=== PATIENT | male | born 1965 | race Caucasian/White ===

== ENCOUNTER 2022-09-28 09:16 | Outpatient (CLI) | payer BC, SELFPAY | END 2022-09-28 09:17 | disposition home or self-care (01) | PROVIDERS: Visit Provider Family Medicine | DX: Z00.00 Encounter for general adult medical examination without abnormal findings (principal); E66.01 Morbid (severe) obesity due to excess calories; I10 Essential (primary) hypertension; N40.0 Benign prostatic hyperplasia without lower urinary tract symptoms; N48.6 Induration penis plastica; Z12.5 Encounter for screening for malignant neoplasm of prostate | CPT/HCPCS: 80053; 80061; 82043; 82570; 84153; 84403; 87086; 87186 ==

== ENCOUNTER 2023-09-11 10:28 | Outpatient (CLI) | payer BC, SELFPAY | END 2023-09-11 10:29 | disposition home or self-care (01) | LOC: NFLDREF 09-13 07:52 | PROVIDERS: PCP Physician Assistant Medical; Referring Provider Family Medicine; Visit Provider Physician Assistant Medical | DX: Z00.00 Encounter for general adult medical examination without abnormal findings (principal); N52.9 Male erectile dysfunction, unspecified; I10 Essential (primary) hypertension; N40.0 Benign prostatic hyperplasia without lower urinary tract symptoms; N40.1 Benign prostatic hyperplasia with lower urinary tract symptoms; R35.0 Frequency of micturition | CPT/HCPCS: 80053; 80061; 84443; G0103 ==

== ENCOUNTER 2023-10-27 18:34 | Emergency (ER) | payer BC, SELFPAY ==
[2023-10-27 18:43] VITALS: BP 132/91; PULSE 77; RESP 14; TEMP 36.3; O2SAT 95; BMI 28.1
--- NOTE | 2023-10-27 19:09 | ED_ITS ---
HPI - Dizziness General Chief Complaint: Dizziness/Vertigo Stated Complaint: dizzy, nausea Time Seen by Provider: 10/27/23 18:39 History of Present Illness HPI Narrative: This 58-year-old male comes in reporting vertigo symptoms that started about 7 or 8 hours ago. These came on rather suddenly and symptoms are minimal or absent if he remains still. He states that he has a long standing history of some tinnitus symptoms over the past 10 years or so. He does not report any other change in his hearing except that he noticed when he remains still he sometimes can hear a wishing sound in his left ear that comes and goes at about the rate of his heartbeat. He has some nausea but did not have any vomiting. He does not report any neurologic deficits. Related Data Home Medications Medication Instructions Recorded Confirmed tadalafil 10 mg tablet mg PRN 10/27/23 Previous Rx's Medication Instructions Recorded lisinopril 20 1 tab PO DAILY #90 tabs 09/12/23 mg-hydrochlorothiazide 12.5 mg tablet tamsulosin 0.4 mg capsule 0.4 mg PO DAILY #90 caps 09/12/23 meclizine 25 mg tablet 25 mg PO QID #20 tabs 10/27/23 ondansetron HCl 4 mg tablet 4 mg PO Q6H #10 tabs 10/27/23 Allergies Allergy/AdvReac Type Severity Reaction Status Date / Time No Known Allergies Allergy Unknown Verified 10/27/23 18:43 Review of Systems Status of ROS: Reports: 10 or more systems reviewed and unremarkable except as noted in History and below Narrative: Constitutional: No fevers, no weight gain or loss. Eyes: No discharge. No vision changes. HENT: No congestion, no sore throat, no ear pain. Cardiovascular: No chest pain, no palpitations. Respiratory: No shortness of breath, no wheezes, no cough. Gastrointestinal: No abdominal pain, no vomiting, no diarrhea. Genitourinary: No dysuria, no hematuria. Musculoskeletal: Normal range of motion. Skin: No rashes, no pruritis. Neurological: No weakness, sensory change, speech change. Vertigo symptoms as described above. Endo/Heme/Allergies: No bruising or bleeding. No polydipsia. Pysch: no suicidality, no anxiety, no insomnia. All other systems reviewed and are negative. [facility] Medical History (Updated 10/27/23 @ 19:13 by Sergei Machado MD) History of compression fracture of spine ?Z87.81 - Personal history of (healed) traumatic fracture (ICD-10) Prostatitis, acute ?N41.0 - Acute prostatitis (ICD-10) Surgical History (Updated 09/11/23 @ 10:04 by Julio C Montes PA-C) History of colonoscopy ?Z98.890 - Other specified postprocedural states (ICD-10) History of vasectomy ?Z98.52 - Vasectomy status (ICD-10) History of orthopedic surgery ?Z98.890 - Other specified postprocedural states (ICD-10) Family History (Updated 09/22/22 @ 12:23 by Megan Ewing) Mother Coronary artery disease Father Diabetes Other Lung cancer Social History (Updated 09/11/23 @ 10:18 by Emma Sanchez ~ [facility]) Narrative: Does not use illicit drugs Has 2 children Nonsmoker Occasional alcohol consumption What is your current living situation?: I presently have a place to live Problems where you live: no known problems In the past 12 months, utilities in danger of being shut off: no In past 12 months, lack of transportation kept you from medical appts, meetings, work, or getting things needed for daily living: no In the past 12 mos, have been you worried that your food would run out before you had money to buy more?: never true In the past 12 mos, the food you bought just didn't last and you didn't have money to buy more?: never true How often does anyone, including family, friends and others, physically hurt you : never How often does anyone, including family, friends and others, insult or talk down to you: never How often does anyone, including family, friends and others, threaten you with harm: never How often does anyone, including family, friends and others, scream or curse at you: never Little interest or pleasure in doing things: not at all Feeling down, depressed, or hopeless: several days Exam Narrative: Exam Narrative: Constitutional: Well-developed, well-nourished, no acute distress. HEENT: Normocephalic, atraumatic. Tympanic membranes appear normal bilaterally. Neck: Normal range of motion. Nontender. Supple. Heart: Regular. No murmurs. Normal rate. Intact distal pulses. Lungs: Clear to auscultation. No chest discomfort. No wheezes, rhonchi, or rales. Abdomen: Normal bowel sounds. Nontender. No rebound tenderness. Genitalia: Deferred. Back: No midline tenderness. Normal range of motion. Extremities: Normal range of motion. No injury. Skin: Intact. No rash. Warm. No erythema or pallor. Neurologic: No altered sensation. No weakness. Alert and oriented. No facial asymmetry. Tongue is midline. [id number] is normal. No pronator drift. [employer] Safety Officer strength is equal bilaterally. Able to raise each leg from the bed. Psychiatric: No suicidality. No anxiety or depression. No insomnia. Nursing notes and vitals signs are reviewed. Const: Vital Signs, click to edit/add: Vital Signs - 24 hr 10/27/23 18:43 Temperature 97.4 F L Pulse Rate [Pulse Oximeter] 77 Respiratory Rate 14 Blood Pressure [Ri ght Upper Arm] 132/91 H Pulse Oximetry 95 Oxygen Delivery Me thod Room Air Course Vital Signs Vital signs: Initial Vital Signs Temperature 97.4 F L 10/27/23 18:43 Temperature Source Temporal Artery Scan 10/27/23 18:43 Pulse Rate 77 10/27/23 18:43 Respiratory Rate 14 10/27/23 18:43 Blood Pressure 132/91 H 10/27/23 18:43 Blood Pressure Mean 104 10/27/23 18:43 Blood Pressure Position Semi-Fowlers 10/27/23 18:43 Pulse Oximetry 95 10/27/23 18:43 Oxygen Delivery Method Room Air 10/27/23 18:43 Vital Signs Temperature 97.4 F L 10/27/23 18:43 Pulse Rate 77 10/27/23 18:43 Respiratory Rate 14 10/27/23 18:43 Blood Pressure 132/91 H 10/27/23 18:43 Pulse Oximetry 95 10/27/23 18:43 Oxygen Delivery Method Room Air 10/27/23 18:43 Temperature 97.4 F L 10/27/23 18:43 Pulse Rate 77 10/27/23 18:43 Respiratory Rate 14 10/27/23 18:43 Blood Pressure 132/91 H 10/27/23 18:43 Pulse Oximetry 95 10/27/23 18:43 Oxygen Delivery Method Room Air 10/27/23 18:43 MDM - Dizziness MDM Narrative Medical decision making narrative: This 58-year-old male comes in with vertigo symptoms that are worsened with movement but improved or completely absent when remaining still. He has pre- existing tinnitus but no hearing changes related to the vertigo. His neurologic exam is completely normal. His vertigo is not suspicious for being from a central process. The patient received oral doses of meclizine and Zofran and prescriptions for the same. He is okay to be discharged home. Discharge Plan Discharge Clinical Impression: Acute vestibular neuronitis Patient Disposition: Home, Self-Care Condition: Stable Additional Instructions: Take medication as needed and directed. Activity as tolerated. Follow up with MD return if worsening. Prescriptions: New ondansetron HCl 4 mg tablet 4 mg PO Q6H Qty: 10 0RF meclizine 25 mg tablet 25 mg PO QID Qty: 20 0RF No Action tadalafil 10 mg tablet PRN lisinopril-hydrochlorothiazide 20-12.5 mg tablet 1 tab PO DAILY Qty: 90 3RF tamsulosin 0.4 mg capsule 0.4 mg PO DAILY Qty: 90 3RF Follow Up/Referrals: Julio C Montes PA-C [Primary Care Provider] - Stand Alone Forms: [employer] Info Instructions
--- OUTSIDE RECORDS SUMMARY | 2023-10-27 19:16 | XMS_ITS | Data Portability ---
Author Name Unknown Address [address] [place] [address] Phone [phone] Organization [facility], [facility] Address [address] [place] [address] Care Team Providers Care Mandarin Tutor Name Role Phone JACOB MCLEOD Primary Care Provider Assessment Encounter Date Assessment Date Assessment LastModified by Organization Details LastModified Time 02/17/2020 02/17/2020 54 yoM with elevated PSA, lower urinary tract symptoms including nocturia Not available 02/18/2020 10:04:32 10/06/2022 10/06/2022 57 yoM with elevated PSA, lower urinary tract symptoms including nocturia, and Peyronie's disease Not available 10/06/2022 08:22:04 12/28/2022 12/28/2022 57 yoM with elevated PSA, lower urinary tract symptoms including nocturia, and Peyronie's disease rstromquist Not available 12/23/2022 15:30:14 06/29/2023 06/29/2023 57 yoM with elevated PSA, lower urinary tract symptoms including nocturia, and Peyronie's disease rstromquist Not available 06/27/2023 11:29:00 09/27/2023 09/27/2023 58 yoM with elevated PSA, lower urinary tract symptoms including nocturia, and Peyronie's disease rstromquist Not available 09/26/2023 16:12:02 Plan of Treatment Reminders Order Date Submit Date Provider Last Modified By Organization Details Last Modified Time Details Appointments None recorded . Lab prostate specific Ag, serum or plasma 2019 020 ATHENAFAX Jacob Mcleod MD, [address], [place], [address], 0 16:55:05 Referral None recorded . Procedures None recorded . Surgeries transure thral waterjet ablation of prostate , complete (SURG) 2023 024 [email or web address] Not available 4 13:38:16 Imaging None recorded . Medication Orders tadalafi l 20 mg tablet 2023 024 [id number], [address], [place], [address], 4 13:14:51 sildenaf il 100 mg tablet 2022 023 [id number], [facility], [place], [address], 4 13:14:43 pentoxif ylline ER 400 mg tablet,e xtended release 2022 023 [id number], [facility], [place], [address], 3 11:51:53 Patient TargetsNo targets recorded. Patient Instructions Encounter Date Encounter Id Patient Instructions Last Modified By Organization Details Last Modified Time 09/27/2023 [id number] Procedure Description: The Aquablation procedure is a minimally invasive surgical technique used to treat benign prostatic hyperplasia (BPH). During the procedure, a combination of imaging and robotics is utilized to deliver a high-velocity waterjet to precisely remove excess prostate tissue, thus relieving urinary symptoms associated with BPH. The procedure is performed under general or regional anesthesia. Benefits: Improved urinary symptoms: Aquablation has shown efficacy in improving urinary flow, reducing urinary frequency, urgency, and nocturia, and relieving other symptoms caused by BPH. Preserved sexual function: The Aquablation procedure aims to preserve sexual function, including erectile function and ejaculation. Risks and Complications: While Aquablation is generally considered safe, there are potential risks and complications associated with the procedure, including but not limited to: (1) Bleeding: In rare cases, excessive bleeding may occur during or after the procedure, requiring blood transfusion or further intervention. (2) Infection: There is a risk of infection at the surgical site, urinary tract, or elsewhere in the body, which may necessitate antibiotic treatment. (3) Urinary retention: Difficulty or inability to urinate immediately after the procedure may occur, necessitating the placement of a temporary urinary catheter. (4) Urinary incontinence: There is a small risk of temporary or, in rare cases, permanent urinary incontinence. (5) Sexual dysfunction: While efforts are made to preserve sexual function, there is a possibility of erectile dysfunction, retrograde ejaculation, or other changes in sexual function. (6) Transurethral resection of the prostate (TURP) conversion: In rare instances, if the Aquablation procedure is deemed unsuccessful or unsafe, conversion to TURP or other interventions may be necessary. Not available 09/27/2023 13:34:55 10/06/2022 [id number] He would like to proceed with pentoxifylline with manual traction therapy. What I would like you to do is 2-3 times per day spend a total of 2 minutes performing stretching exercises. First you will stretch your penis straight until is is uncomfortably tight. Hold this for 1 minute. The use your other hand to create a fulcrum and bend the penis the opposite way from the direction that it bends with erections. Again hold this for 1 minute. You should perform these stretching exercises in the flaccid state. Not available 10/06/2022 10:35:34 Reason for Referral None Reported. Results Created Date Observation Date Name Description Value Unit Range Abnormal Flag LastModifiedBy Organization Detail LastModifiedTime 10/07/1910/06/2022 EXODX PROST ATE(I NTELL ISCOR E) performingsi te Not Available [facility] [address], [place], [address], 10/11/2022 15:17:14 10/13/1910/06/2022 bladd er scan (PROC ) No observ ation record ed. Not Available 12/28/2022 12:07:30 10/10/19 24 09/27/2023 US, prost ate No observ ation record ed. [email or web address] Not Available 10/10/2023 14:58:04 Result Notes None recorded. Procedures Surgical History Date Name Laterality Status Provider Name and Address Organization Details Recorded Time 4 Cystoscopy- male completed Kade Chan MD [address], [place], [address], [facility] 09/27/2023 13:31:06 4 COMPLEX VISIT completed Kade Chan MD [address] [place] [address],[address], [place], [address], [facility] 09/27/2023 09:43:11 4 TRUS- Volume size only completed Kade Chan MD [address] [place] [address],[address], [place], [address], [facility] 09/27/2023 13:32:06 4 Sulfa post Cysto completed Nazia Stromquist null, [facility] 09/27/2023 12:49:00 4 Bladder Scan completed Nazia Stromquist null, [facility] 09/27/2023 12:48:52 4 COMPLEX VISIT completed Kade Chan MD [address] [place] [address],[address], [place], [address], [facility] 06/29/2023 21:30:03 4 Bladder Scan completed Krys Martín null, [facility] 06/29/2023 11:46:50 3 Bladder Scan completed Nazia Stromquist null, [facility] 12/28/2022 11:50:34 3 Bladder Scan completed Nazia Stromquist null, [facility] 10/06/2022 10:01:06 repair of penis completed Nazia Stromquist null, [facility] 10/06/2022 10:00:29 Imaging Results Imaging Date Name Status LastModified by Organiz ation Details LastModified Time 10/06/2022 bladder scan (PROC) completed Information not available 12/28/2022 12:07:30 09/27/2023 US, prostate completed Information not available 10/10/2023 14:58:04 Procedure Notes None recorded. Medical Equipment None Reported. Allergies No known drug allergies Medications Name Sig Start Date Stop Date Status Note LastModified by Organization Details LastModified Time amoxicillin 500 mg capsule TAKE ONE CAPSULE BY MOUTH THREE TIMES DAILY for 10 days* 12/28 completed Not Available Not Available Not Available lisinopril 20 mg-hydrochlo rothiazide 12.5 mg tablet TAKE 1 TABLET BY MOUTH ONE TIME DAILY* active Not Available Not Available No t Available sildenafil 100 mg tablet take 1 tablet by mouth once daily as needed* 09/26 completed Not Available Not Available Not Available pentoxifylli ne ER 400 mg tablet,exten ded release TAKE 1 TABLET BY MOUTH TWICE DAILY 12/28 completed Not Available Not Available Not Available tamsulosin 0.4 mg capsule TAKE 1 CAPSULE BY MOUTH ONE TIME DAILY* active Not Available Not Available No t Available lisinopril 10 mg tablet TAKE 1 TABLET BY MOUTH ONE TIME DAILY 10/06 completed Not Available Not Available Not Available lisinopril 10 mg-hydrochlo rothiazide 12.5 mg tablet TAKE 1 TABLET BY MOUTH ONE TIME DAILY 12/28 completed Not Available Not Available Not Available doxycycline hyclate 100 mg tablet 10/06 completed Not Available Not Available Not Available tadalafil 20 mg tablet TAKE 1 TABLET BY MOUTH ONE TIME DAILY* active Not Available Not Available No t Available Vitals Date Recorded Body height Body mass index (BMI) Body weight Provider Name and Address Organization Details Last Updated DateTime 10/06/2022 190.5 cm 28.7 kg/m2 366022.25 g Nazia Miranda [facility] 10/06/2022 09:49:57 Date Recorded Body height Body mass index (BMI) Body weight Provider Name and Address Organization Details Last Updated DateTime 12/28/2022 190.5 cm 28.7 kg/m2 090358.25 g Nazia Miranda [facility] 12/28/2022 11:44:28 Date Recorded Body height Body mass index (BMI) Body weight Provider Name and Address Organization Details Last Updated DateTime 06/29/2023 190.5 cm 28.1 kg/m2 041779.28 g Krys Resendiz [facility] 06/29/2023 11:47:29 Date Recorded Body height Body mass index (BMI) Body weight Provider Name and Address Organization Details Last Updated DateTime 02/17/2020 190.5 cm 28.7 kg/m2 182853.25 g Kade Chan MD [address] [place] [address] [address], [place], [address], [facility] 02/17/2020 16:22:36 Social History Question Answer Notes LastModified by Organizat ion Details LastModified Time Tobacco Smoking Status Current Some Day Smoker Nazia conrad [facility] 10/06/2022 09:59:17 What Is Your Level Of Alcohol Consumption? Occasional Information not available 10/06/2022 What Was The Date Of Your Most Recent Tobacco Screening? 06/29/2023 [email or web address] Information not available 06/29/2023 Do You Use Any Illicit Or Recreational Drugs? No Information not available 10/06/2022 Sex: Male Functional Status None recorded. Mental Status None recorded. Family History Relationship Description Onset Age of this Age Resolved Age Notes Mother Family history of ca rdiac disorder Father Family history of di abetes mellitus Medical History Condition Response Sexually Transmitted Infection N Diabetes N Other N Bleeding Disorder N High Blood Pressure Y Kidney Stones N Cancer N Lung Disease N Depression N High Cholesterol N Heart Disease N Immunizations Vaccine Type Date Status Provider Name and Address Organization Details Recorded Time COVID-19, mRNA, LNP-S, PF, 30 mcg/0.3 mL dose 07/13/2021 completed Nazia conrad [facility] 12/28/2022 11:44:33 COVID-19, mRNA, LNP-S, PF, 30 mcg/0.3 mL dose 09/29/2020 completed Nazia conrad [facility] 12/28/2022 11:44:34 COVID-19, mRNA, LNP-S, PF, 30 mcg/0.3 mL dose 10/20/2020 completed Nazia conrad [facility] 12/28/2022 11:44:34 Tdap 12/11/2018 completed Nazia conrad [facility] 12/28/2022 11:44:34 Novel [id number], all formulations 06/08/2009 completed Nazia conrad [facility] 12/28/2022 11:44:34 yellow fever live 08/10/2016 completed Nazia conrad [facility] 12/28/2022 11:44:34 Influenza, seasonal, injectable, preservative free 04/03/2014 completed Nazia Ruth [place], [facility] 12/28/2022 11:44:34 Hep A, adult 08/10/2016 completed Nazia conrad [facility] 12/28/2022 11:44:34 Past Encounters Encounter ID Performer Location Encounter Start Date Encounter Closed Date Diagnosis/Indication Diagnosis SNOMED-CT Code [id number] MD [facility] [address] [place] [address] 02/17/2020 15:58:43 02/18/2020 23:49:02 Prostate specific antigen above reference range 091588318 Lower urin nabor tract symptoms 885556817 Nocturia [id number] MD [facility] [address] [place] [address] 10/06/2022 09:42:18 10/11/2022 10:25:34 Prostate specific antigen above reference range 110248929 Lower urin nabor tract symptoms 734701382 Nocturia 884006571 Induration penis plastica 7366975 [id number] MD [facility] [address] [place] [id number] 12/28/2022 11:27:11 01/03/2023 10:01:19 Prostate specific antigen above reference range 397150295 Lower urin nabor tract symptoms 654370958 Nocturia 538374226 Induration penis plastica 0239104 Primary er ectile dysfunction 690100788 [id number] MD [facility] [address] [place] [id number] 06/29/2023 11:38:50 07/06/2023 09:45:30 Prostate specific antigen above reference range 956666469 Lower urin nabor tract symptoms 419070648 Nocturia 489151450 Induration penis plastica 7610915 Primary er ectile dysfunction [id number] MD [facility] [address] [place] [id number] 09/27/2023 12:02:47 09/28/2023 14:14:20 Prostate specific antigen above reference range 264825523 Lower urin nabor tract symptoms 756468653 Nocturia 281359017 Induration penis plastica 0584512 Primary er ectile dysfunction 023604643 Health Concerns Section Related Observation LastModified by Organization Detai ls LastModified Time None Recorded Concern Status LastModified by Organization Details LastModified Time None Recorded Advance Directives Directive None Recorded Payers Encounter Date Sequence Insurance Name Policy Number Policy Smith Covered Member ID Smith Member ID Guarantor Name 09/27/2023 1 [place] [id number] Donnell [id number] Donnell Lind 06/29/2023 1 [place] [id number] Donnell [id number] Donnell Lind 12/28/2022 1 [place] [id number] Donnell Lind [id number] Donnell Lind 10/06/2022 1 [place] [id number] Donnell [id number] Donnell Lind 02/17/2020 1 [place] [id number] Donnell Lind [id number] Donnell Lind Notes Date Note Type Note Provider Name and Address Organization Details Recorded Time 02/17/2020 text/html HPI Notes: Mr. Lind is a very pleasant 54 yoM who is referred to me by his PCP, Dr. Harjinder Mcleod, regarding elevated PSA. Patient has been undergoing routine health maintainance which included PSA screening. While his 2019 PSA measured 2.52, his 2020 PSA measured 12.4. Thus he is referred to me for evaluation and treatment. 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 However, was started by his PCP on tamsulosin a few days ago and states that he has already noticed a difference. Current erectile function: reports no significant issues [facility] Prostate Cancer Risk Assessment Tool: unfortunately only validated for age 55 years and greater. Social Security Life Expectancy: >10 years Of note he has been spending a lot of time on his four chavez this summer and is not sure about sexual activity around the time of his last PSA. Kade Chan MD [address], [place], [address], [facility] 02/18/2020 10:05:17 10/06/2022 text/html HPI Notes: Mr. Lind is a very pleasant 57 yoM who is referred to me by his PCP, Dr. Harjinder Mcleod, regarding elevated PSA. Patient has been undergoing routine health maintainance which included PSA screening. While his 2019 PSA measured 2.52, his 2019 PSA measured 12.4. Thus he is referred to me for evaluation and treatment. 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 However, was started by his PCP on tamsulosin a few days ago and states that he has already noticed a difference. Current erectile function: reports no significant issues [facility] Prostate Cancer Risk Assessment Tool: unfortunately only validated for age 55 years and greater. Social Security Life Expectancy: >10 years Of note he has been spending a lot of time on his four chavez this summer and is not sure about sexual activity around the time of his last PSA. 10/06/2022: Mr. Lind is s referred to me by his PCP, Dr. Viviana Camarillo, regarding elevated PSA, sensation of incomplete emptying, nocturia, and new issue of Peyronie's disease. His most recent PSA screenin.92 - 09/28/22 12.4 - 02/05/20 2.52 - 12/11/18 First noted curvature: Since Current curvature: 30 degrees Direction of curvature: Dorsal/lateral Indentation/Hourglas s: No Presence of Pain: Occasionally Quality of Erections: 3 out of 4 (Erectile Hardness Scale) Able to penetrate: Yes Current treatment: None Urination symptoms have improved since starting tamsulosin. Seen today with his who provides some of the history Kade Chan MD [address] [place] [address],[address], [place], [address], [facility] 10/06/2022 18:15:44 12/28/2022 text/html HPI Notes: Mr. Lind is a very pleasant 57 yoM who is referred to me by his PCP, Dr. Harjinder Mcleod, regarding elevated PSA. Patient has been undergoing routine health maintainance which included PSA screening. While his 2019 PSA measured 2.52, his 2019 PSA measured 12.4. Thus he is referred to me for evaluation and treatment. 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 However, was started by his PCP on tamsulosin a few days ago and states that he has already noticed a difference. Current erectile function: reports no significant issues [facility] Prostate Cancer Risk Assessment Tool: unfortunately only validated for age 55 years and greater. Social Security Life Expectancy: >10 years Of note he has been spending a lot of time on his four chavez this summer and is not sure about sexual activity around the time of his last PSA. 10/06/2022: Mr. Lind is s referred to me by his PCP, Dr. Viviana Camarillo, regarding elevated PSA, sensation of incomplete emptying, nocturia, and new issue of Peyronie's disease. His most recent PSA screenin.92 - 09/28/22 12.4 - 02/05/20 2.52 - 12/11/18 First noted curvature: Since Current curvature: 30 degrees Direction of curvature: Dorsal/lateral Indentation/Hourglas s: No Presence of Pain: Occasionally Quality of Erections: 3 out of 4 (Erectile Hardness Scale) Able to penetrate: Yes Current treatment: None Urination symptoms have improved since starting tamsulosin. Seen today with his who provides some of the history 12/28/2022: Here for follow up elevated PSA, sensation of incomplete emptying, nocturia, and Peyronie's disease. Reports that manual traction and pentoxifylline has helped. The plaque has decreased in size and the curvature is somewhat better, still interfering with intercourse. Got some viagra from a friend, interested in pursuing this to help with erections. Seen today with his who provides some of the history. ExoDx was low risk at 12.5 Kade Chan MD [address], [place], [address], [facility] 12/28/2022 12:10:13 06/29/2023 text/html HPI Notes: Mr. Lind is a very pleasant 57 yoM who is referred to me by his PCP, Dr. Harjinder Mcleod, regarding elevated PSA. Patient has been undergoing routine health maintainance which included PSA screening. While his 2019 PSA measured 2.52, his 2020 PSA measured 12.4. Thus he is referred to me for evaluation and treatment. 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 However, was started by his PCP on tamsulosin a few days ago and states that he has already noticed a difference. Current erectile function: reports no significant issues [facility] Prostate Cancer Risk Assessment Tool: unfortunately only validated for age 55 years and greater. Social Security Life Expectancy: >10 years Of note he has been spending a lot of time on his four chavez this summer and is not sure about sexual activity around the time of his last PSA. 10/06/2022: Mr. Lind is s referred to me by his PCP, Dr. Viviana Camarillo, regarding elevated PSA, sensation of incomplete emptying, nocturia, and new issue of Peyronie's disease. His most recent PSA screenin.92 - 09/28/22 12.4 - 02/05/20 2.52 - 12/11/18 First noted curvature: Since Current curvature: 30 degrees Direction of curvature: Dorsal/lateral Indentation/Hourglas s: No Presence of Pain: Occasionally Quality of Erections: 3 out of 4 (Erectile Hardness Scale) Able to penetrate: Yes Current treatment: None Urination symptoms have improved since starting tamsulosin. Seen today with his who provides some of the history 12/28/2022: Here for follow up elevated PSA, sensation of incomplete emptying, nocturia, and Peyronie's disease. Reports that manual traction and pentoxifylline has helped. The plaque has decreased in size and the curvature is somewhat better, still interfering with intercourse. Got some viagra from a friend, interested in pursuing this to help with erections. Seen today with his who provides some of the history. ExoDx was low risk at 12.5 06/29/2023: Here for follow-up elevated PSA, nocturia, erectile dysfunction, and Peyronie's disease. Urination continues to be bothersome. Sildenafil 100 mg has helped. 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 Kade Chan MD [address], [place], [address], [facility] 06/29/2023 21:30:15 09/27/2023 text/html HPI Notes: Mr. Lind is a very pleasant 58 yoM who is referred to me by his PCP, Dr. Harjinder Mcleod, regarding elevated PSA. Patient has been undergoing routine health maintainance which included PSA screening. While his 2019 PSA measured 2.52, his 2019 PSA measured 12.4. Thus he is referred to me for evaluation and treatment. 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 However, was started by his PCP on tamsulosin a few days ago and states that he has already noticed a difference. Current erectile function: reports no significant issues [facility] Prostate Cancer Risk Assessment Tool: unfortunately only validated for age 55 years and greater. Social Security Life Expectancy: >10 years Of note he has been spending a lot of time on his four chavez this summer and is not sure about sexual activity around the time of his last PSA. 10/06/2022: Mr. Lind is s referred to me by his PCP, Dr. Viviana Camarillo, regarding elevated PSA, sensation of incomplete emptying, nocturia, and new issue of Peyronie's disease. His most recent PSA screenin.92 - 09/28/22 12.4 - 02/05/20 2.52 - 12/11/18 First noted curvature: Since Current curvature: 30 degrees Direction of curvature: Dorsal/lateral Indentation/Hourglas s: No Presence of Pain: Occasionally Quality of Erections: 3 out of 4 (Erectile Hardness Scale) Able to penetrate: Yes Current treatment: None Urination symptoms have improved since starting tamsulosin. Seen today with his who provides some of the history 12/28/2022: Here for follow up elevated PSA, sensation of incomplete emptying, nocturia, and Peyronie's disease. Reports that manual traction and pentoxifylline has helped. The plaque has decreased in size and the curvature is somewhat better, still interfering with intercourse. Got some viagra from a friend, interested in pursuing this to help with erections. Seen today with his who provides some of the history. ExoDx was low risk at 12.5 06/29/2023: Here for follow-up elevated PSA, nocturia, erectile dysfunction, and Peyronie's disease. Urination continues to be bothersome. Sildenafil 100 mg has helped. 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 09/27/2023: Here for follow-up elevated PSA, nocturia, erectile dysfunction, and Peyronie's disease. Here for TRUS and cysto. Seen today with his who provides some of the hisotry. Kade Chan MD [address], [place], [address], [facility] 09/27/2023 13:35:10
--- OUTSIDE RECORDS SUMMARY | 2023-10-27 19:16 | XMS_ITS | Continuity of Care Document ---
Author Name Unknown Address [address] [place] [address] Phone [phone] Organization [facility], [facility] Address [address] [place] [address] Care Team Providers Care Java Swing Developer Name Role Phone LOTUS MCLEOD Primary Care Provider Assessment Encounter Date Assessment Date Assessment LastModified by Organization Details LastModified Time 09/27/2023 09/27/2023 58 yoM with elevated PSA, lower urinary tract symptoms including nocturia, and Peyronie's disease [email or web address] Not available 09/26/2023 16:12:02 Plan of Treatment Reminders Order Date Submit Date Provider Last Modified By Organization Details Last Modified Time Details Appointments None recorded. Lab None recorded. Referral None recorded. Procedures None recorded. Surgeries transurethr al waterjet ablation of prostate, complete (SURG) 2023 024 [email or web address] Not available 13:38:16 Imaging None recorded. Medication Orders tadalafil 20 mg tablet 2023 024 [id number], [address] [place] [address], [address], 13:14:51 Patient TargetsNo targets recorded. Patient Instructions Encounter Date Encounter Id Patient Instructions Last Modified By Organization Details Last Modified Time 09/27/2023 [id number] Procedure Description: The Aquablation procedure is a [...] may be necessary. Not available 09/27/2023 13:34:55 Reason for Referral None Reported. Results Created Date Observation Date Name Description Value Unit Range Abnormal Flag LastModifiedBy Organization Detail LastModifiedTime 10/10/19 24 09/27/2023 US, prost ate No observ ation record ed. [email or web address] Not Available 10/10/2023 14:58:04 Result Notes None recorded. Procedures Surgical History Date Name Laterality Status Provider Name and Address Organization Details Recorded Time 4 Cystoscopy- male completed Kade Chan MD [address] [place] [address],[address], [place], [address], [facility] 09/27/2023 13:31:06 4 COMPLEX VISIT completed Kade Chan MD [address] [place] [address],[address], [place], [address], [facility] 09/27/2023 09:43:11 4 TRUS- Volume size only completed Kade Chan MD [address] [facility],[address], [place], [address], [facility] 09/27/2023 13:32:06 4 Sulfa post Cysto completed Nazia Miranda null, [facility] 09/27/2023 12:49:00 4 Bladder Scan completed Nazia Ruth null, [facility] 09/27/2023 12:48:52 4 COMPLEX VISIT completed Kade Chan MD [address] [facility],[address], [place], [address], [facility] 06/29/2023 21:30:03 4 Bladder Scan completed Krys Martín null, [facility] 06/29/2023 11:46:50 3 Bladder Scan completed Nazia Ruth null, [facility] 12/28/2022 11:50:34 3 Bladder Scan completed Nazia Ruth null, [facility] 10/06/2022 10:01:06 repair of penis completed Nazia Miranda null, [facility] 10/06/2022 10:00:29 Imaging Results None recorded. Procedure Notes None recorded. Medical Equipment None [...] Available Not Available No t Available Vitals None Recorded Social History Question Answer Notes LastModified by Organizat ion Details LastModified Time Tobacco Smoking Status Current Some Day Smoker Nazia conrad [facility] 10/06/2022 09:59:17 What Is Your Level Of [...] mcg/0.3 mL dose 07/13/2021 completed Nazia conrad [facility] 12/28/2022 11:44:33 COVID-19, mRNA, LNP-S, PF, 30 mcg/0.3 mL dose 09/29/2020 completed Nazia conrad [facility] 12/28/2022 11:44:34 COVID-19, mRNA, LNP-S, PF, 30 mcg/0.3 mL dose 10/20/2020 completed Nazia conrad [facility] 12/28/2022 11:44:34 [facility] 12[facility]11/2018 [facility] 11:44:34 Novel Jtlphflun-D2S3-23, all formulations 06/08/[address] [facility] 12/28/2022 11:44:34 yellow fever live 08/10/[address] [facility] 12/28/2022 11:44:34 Influenza, seasonal, injectable, preservative free 04/03/[address] [facility] 12/28/2022 11:44:34 Hep A, adult 08/10/[address] [facility] 12/28/2022 11:44:34 Past Encounters Encounter ID Performer Location Encounter Start Date Encounter Closed Date Diagnosis/Indication Diagnosis SNOMED-CT Code [id number] Kade Chan MD [facility] [address] [place] [id number] 09/27/2023 12:02:47 09/28/2023 14:14:20 Prostate specific antigen above reference range [id number] Lower urin nabor tract symptoms 029906833 Nocturia 135987206 Induration penis plastica 1502445 Primary er ectile dysfunction 634755336 Health Concerns Section Related Observation LastModified by Organization Detai ls LastModified Time None Recorded Concern Status LastModified by Organization Details LastModified Time None Recorded Payers Encounter Date Sequence Insurance Name Policy Number Policy Smith Covered Member ID Smith Member ID Guarantor Name 09/27/2023 1 [place] [id number] Donnell Lind [id number] Donnell Lind Notes Date Note Type Note Provider Name and Address Organization Details Recorded Time 09/27/2023 text/html HPI Notes: Mr. Lind is a very pleasant 58 yoM who is referred to me by his PCP, Dr. Harjinder Mcleod, regarding elevated PSA. Patient has been undergoing routine health maintainance which included PSA screening. While his 2019 PSA measured 2.52, his 2020 PSA measured 12.4. Thus he is referred to me for evaluation and treatment. Family history of dean of [employer]: None Current voiding symptoms: reports that he occasionally has sensation of incomplete emptying and has been struggling with nocturia up to 3x per night for the past year. However, was started by his PCP on tamsulosin a few days ago and states that he has already noticed a difference. Current erectile function: reports no significant issues [facility] Prostate Cancer Risk Assessment Tool: unfortunately [...] some of the hisotry. Kade Chan MD [address] [facility],[address], [place], [address], [facility] 09/27/2023 13:35:10
--- OUTSIDE RECORDS SUMMARY | 2023-10-27 19:16 | XMS_ITS | Clinical Summary ---
Author Name Unknown Organization [facility] Address [place], [place] [address] Care Team Providers Care Maintainability Engineer Name Role Phone Jacob Mcleod MD Primary Care Provider [phone] Allergies No known active allergies Medications No known medications Active Problems Problem Noted Date Diagnosed Date Corneal laceration of right eye 09/19/2017 Routine adult health maintenance 09/28/2015 Overview: Colonoscopy 09/2015 diverticulosis repeat in 10 years Social History Tobacco Use Types Packs/Day Years Used Date Smoking Tobacco: Former Smokeless Tobacco: Never Sex and Gender Information Value Date Recorded Sex Assigned at Not on file Gender Identity Not on file Sexual Orientation Not on file Obstetrics History Last Filed Vital Signs Vital Sign Reading Time Taken Comments Blood Pressure 142/90 09/11/2017 3:53 PM CDT Pulse 65 09/11/2017 3:53 PM CDT Temperature 36.7 ??C (98 ??F) 12/14/2004 12:00 AM CDT Respiratory Rate - - Oxygen Saturation - - Inhaled Oxygen Concentration - - Weight - - Height - - Body Mass Index - - Plan of Treatment Health Maintenance Due Date Last Done Comments Tdap 1976 Depression screening for age 12+ 1977 HIV for age 15-65 1980 BMI (ht and wt on same day) for age 18+ 1983 Hepatitis C screening for ag e 18-79 1983 Tetanus booster 1985 Lipids for age 45-75 2010 Zoster (shingles) series for age 50+ (1 of 2) 2015 COVID-19 vaccine series (2022-24 season) 2023 Influenza for age 50-64 02/18/2024 Colonoscopy through age 75 09/27/202509/27, 09/28/2015, 09/28/2015 Pneumococcal series for age 6-64 Aged Out No longer eligible b ased on patient's age to complete this topic Procedures Procedure Name Priority Date/Time Associated Diagnosis Comments SCAN-COLONOSCOPY 09/28/2015 12:0 0 AM CDT from Last 3 Months or Most Recently Relevant to Health Maintenance Results * SCAN-COLONOSCOPY (09/28/2015 12:00 AM CDT) Scanner OTHER from Last 3 Months or Most Recently Relevant to Health Maintenance Care Teams Maintainability Engineer Relationship Specialty Start Date End Date Jacob Mcleod MD PCP - General Family Practice 09/28/15
[2023-10-27] MEDS: ONDANSETRON ODT 4 MG TAB PO (19:18)
[2023-10-27] MEDS: MECLIZINE HCL 25 MG TABLET PO (19:18)
== END 2023-10-27 19:31 | disposition home or self-care (01) ==
PROVIDERS: Emergency Provider Emergency Medicine Emergency Medical Services; PCP Physician Assistant Medical
DX: H81.22 Vestibular neuronitis, left ear (principal)
CPT/HCPCS: 99283; 99284; A9270

== ENCOUNTER 2023-11-08 18:27 | Emergency (ER) | payer BC, SELFPAY ==
[2023-11-08 18:32] VITALS: BP 143/86; PULSE 84; RESP 18; TEMP 36.8; O2SAT 96; BMI 28.1
--- OUTSIDE RECORDS SUMMARY | 2023-11-08 20:29 | XMS_ITS | Clinical Summary ---
Author Organization [facility] Address [place], [place] [address] Care Team Providers Care Registrar Museum Name Role Phone Jacob Mcleod MD Primary Care Provider [phone] Allergies No known active allergies Medications No [...] (1 of 2) 2015 COVID-19 vaccine series (1 - 2023-24 season) 2023 Influenza for age 50-64 02/18/2024 [...] Recently Relevant to Health Maintenance Care Teams Registrar Museum Relationship Specialty Start Date End Date Jacob Mcleod MD PCP - General Family Practice 09/28/15
--- NOTE | 2023-11-08 20:39 | W.ED.CHARTNO ---
ED Chart Note Chart Note Details Date: 11/08/23 Details: Left without being seen by provider
== END 2023-11-08 20:30 | disposition left against medical advice (07) ==
PROVIDERS: Emergency Provider Student in an Organized Health Care Education/Training Program; PCP Physician Assistant Medical
DX: Z53.21 Procedure and treatment not carried out due to patient leaving prior to being seen by health care provider (principal)

== ENCOUNTER 2023-11-27 08:50 | Outpatient (CLI) | payer BC, SELFPAY ==
--- OUTSIDE RECORDS SUMMARY | 2023-11-27 08:53 | XMS_ITS | Data Portability ---
Author Organization [facility] Address [address] [place] [address] Care Team Providers Care Lasting Room Machine Operator Name Role Phone JACOB MCLEOD Primary Care [...] Organization Details Last Modified Time Details Appointments [facility] L 120 2023 03:00P Kvng Chan MD Not available Not available Not available Lab prostat e specifi c Ag, serum or plasma 2019 020 ATHENAFAX Jacob Mcleod MD, [address], [place], [address], 02/17/2020 16:55:05 Referral None recorde d. Procedures None recorde d. Surgeries transur ethral waterje t ablatio n of prostat e, complet e (SURG) 2023 024 [email or web address] Not available 11/16/2023 10:18:59 Imaging None recorde d. Medication Orders tadalaf il 20 mg tablet 2023 024 [facility], [facility] [place], [address], 09/27/2023 13:14:51 sildena ely 100 mg tablet 2022 023 [facility], [address] [place], [place] [address] [place], [address], 09/27/2023 13:14:43 pentoxi fylline ER 400 mg tablet, extende d release 2022 023 [facility], [facility] [address], [address], 12/28/2022 11:51:53 Patient TargetsNo targets recorded. Patient Instructions Encounter Date Encounter Id Patient Instructions Last Modified By Organization Details Last Modified Time 09/27/2023 [id number] Procedure Description: The Aquablation procedure is a [...] be necessary. Not available 09/27/2023 13:34:55 10/06/2022 [id number] He would like to proceed with pentoxifylline [...] [facility] [address], [place], [address], 10/11/2022 15:17:14 10/13/19 23 10/06/2022 bladd er scan (PROC ) No observ ation record ed. Not Available 12/28/2022 12:07:30 04/2309/27/2023 US, prost ate No observ ation record ed. [email or web address] Not Available 10/10/2023 14:58:04 Result Notes None recorded. Procedures Surgical History Date Name Laterality Status Provider Name and Address Organization Details Recorded Time 4 Cystoscopy- male completed Kade Chan MD [address] [place] [address],[address], [place], [address], [facility] 09/27/2023 13:31:06 4 COMPLEX VISIT completed Kade Chan MD [address] [place] [address],[address], [place], [address], [facility] 09/27/2023 09:43:11 4 TRUS- Volume size only completed Kade Chan MD [address] [place] [address],[address], [place], [address], [facility] 09/27/2023 13:32:06 4 Sulfa post Cysto completed Nazia Stromquist null, [facility] 09/27/2023 12:49:00 4 Bladder Scan completed Nazia Stromquist null, [facility] 09/27/2023 12:48:52 4 COMPLEX VISIT completed Kade Chan MD [address] [place] [address],[address], [place], [address], [facility] 06/29/2023 21:30:03 4 Bladder Scan completed Krys Martín null, [facility] 06/29/2023 11:46:50 3 Bladder Scan completed Nazia Stromquist null, [facility] 12/28/2022 11:50:34 3 Bladder Scan completed Nazia Stromquist null, [facility] 10/06/2022 10:01:06 repair of penis completed Nazia Stromquist null, [facility] 10/06/2022 10:00:29 Imaging Results Imaging Date Name Status [facility] by [facility] Details LastModified Time 10/06/2022 bladder scan (PROC) [...] Updated DateTime 10/06/2022 190.5 cm 28.7 kg/m2 770000.25 g Nazia Miranda [facility] 10/06/2022 09:49:57 Date Recorded Body height Body mass index (BMI) Body weight Provider Name and Address Organization Details Last Updated DateTime 12/28/2022 190.5 cm 28.7 kg/m2 935954.25 g Nazia Miranda [facility] 12/28/2022 11:44:28 Date Recorded Body height Body mass index (BMI) Body weight Provider Name and Address Organization Details Last Updated DateTime 06/29/2023 190.5 cm 28.1 kg/m2 910900.28 g Krys Resendiz [facility] 06/29/2023 11:47:29 Date Recorded Body height Body mass index (BMI) Body weight Provider Name and Address Organization Details Last Updated DateTime 02/17/2020 190.5 cm 28.7 kg/m2 654653.25 g Kade Chan MD [address] [place] [address],[facility] [place] [address], [address], [facility] 02/17/2020 16:22:36 Social History Question Answer Notes LastModified by Organizat ion Details LastModified Time Tobacco Smoking Status Current Some Day Smoker Nazia conrad, [facility] 10/06/2022 09:59:17 What Is Your Level Of [...] di abetes mellitus Medical History Condition Response Diabetes N Sexually Transmitted Infection N Other N Bleeding Disorder N High Blood Pressure Y Kidney Stones N Cancer N Lung Disease N Depression N High Cholesterol N Heart Disease N Immunizations Vaccine Type Date Status Provider Name and Address Organization Details Recorded Time COVID-19, mRNA, LNP-S, PF, 30 mcg/0.3 mL dose 07/13/2021 completed Nazia conrad [facility] 12/28/2022 11:44:33 COVID-19, mRNA, LNP-S, PF, 30 mcg/0.3 mL dose 09/29/2020 completed Nazia conrad, [facility] 12/28/2022 11:44:34 COVID-19, mRNA, LNP-S, PF, 30 mcg/0.3 mL dose 10/20/2020 completed Nazia conrad, [facility] 12/28/2022 11:44:34 Tdap 12/11/2018 completed Nazia conrad [facility] 12/28/2022 11:44:34 Novel Shiaefcyd-T4T3-50, all formulations 06/08/2009 completed Nazia conrad, [facility] 12/28/2022 11:44:34 yellow fever live 08/10/2016 completed Nazia conrad, [facility] 12/28/2022 11:44:34 Influenza, split virus, trivalent, PF 04/03/2014 completed Nazia conrad, [facility] 12/28/2022 11:44:34 Hep A, adult 08/10/2016 completed Nazia conrad, [facility] 12/28/2022 11:44:34 Past Encounters Encounter ID Performer Location Encounter Start Date Encounter Closed Date Diagnosis/Indication Diagnosis SNOMED-CT Code [id number] MD [facility] [address] [place] [id number] 02/17/2020 15:58:43 02/18/2020 23:49:02 Prostate specific antigen above reference range 302757151 Lower urin nabor tract symptoms 207032818 Nocturia 312297327 [id number] MD [facility] [address] [place] [id number] 10/06/2022 09:42:18 10/11/2022 10:25:34 Prostate specific antigen above reference range 914035800 Lower urin nabor tract symptoms 313317142 Nocturia 031652388 Induration penis plastica 2688402 [id number] MD [facility] [address] [place] [id number] 12/28/2022 11:27:11 01/03/2023 10:01:19 Prostate specific antigen above reference range 570976516 Lower urin nabor tract symptoms 973815001 Nocturia 388569190 Induration penis plastica 8151972 Primary er ectile dysfunction 527940506 [id number] MD [facility] [address] [place] [id number] 06/29/2023 11:38:50 07/06/2023 09:45:30 Prostate specific antigen above reference range 045757182 Lower urin nabor tract symptoms 844623604 Nocturia 054853677 Induration penis plastica 2471041 Primary er ectile dysfunction 217846941 [id number] Kade Chan MD [facility] [address] [place] [id number] 09/27/2023 12:02:47 09/28/2023 14:14:20 Prostate specific antigen above reference range 863122540 Lower urin nabor tract symptoms 547785357 Nocturia 704808942 Induration penis plastica 6788444 Primary er ectile dysfunction 583177425 Health Concerns Section Related Observation LastModified by Organization Detai ls LastModified Time None Recorded Concern Status LastModified by Organization Details LastModified Time None Recorded Advance Directives Directive None Recorded Payers Encounter Date Sequence Insurance Name Policy Number Policy Smith Covered Member ID Smith Member ID Guarantor Name 09/27/2023 1 [place] [id number] Donnell [id number] Donnell Lind 06/29/2023 1 [place] [id number] Donnell Lidn [id number] Donnell Lind 12/28/2022 1 [place] [id number] Donnell Lind [id number] Donnell Lind 10/06/2022 1 [place] [id number] Donnell Lind [id number] Donnell Lind 02/17/2020 1 [place] [id number] Donnell Lind [id number] Donnell Lind Notes Date Note Type Note [...] for evaluation and treatment. Family history of lead embedded software engineer: None Current voiding symptoms: reports that he occasionally has sensation of incomplete emptying and has been struggling with nocturia up to 3x per night for the past year. However, was started by his PCP on tamsulosin a few days ago and states that he has already noticed a difference. Current erectile function: reports no significant issues [facility] Prostate Cancer Risk Assessment Tool: unfortunately only validated for age 55 years and greater. Social Security Life Expectancy: >10 years Of note he has been spending a lot of time on his four chavez this summer and is not sure about sexual activity around the time of his last PSA. Kade Chan MD [address], [place], [address], [facility] 02/18/2020 10:05:17 10/06/2022 text/html [...] for evaluation and treatment. Family history of lead embedded software engineer: None Current voiding symptoms: reports that he occasionally has sensation of incomplete emptying and has been struggling with nocturia up to 3x per night for the past year. However, was started by his PCP on tamsulosin a few days ago and states that he has already noticed a difference. Current erectile function: reports no significant issues [facility] Prostate Cancer Risk Assessment Tool: unfortunately only [...] some of the history Kade Chan MD [address], [place], [address], [place] [facility] 10/06/2022 18:15:44 12/28/2022 text/html HPI Notes: [...] for evaluation and treatment. Family history of lead embedded software engineer: None Current voiding symptoms: reports that he occasionally has sensation of incomplete emptying and has been struggling with nocturia up to 3x per night for the past year. However, was started by his PCP on tamsulosin a few days ago and states that he has already noticed a difference. Current erectile function: reports no significant issues [facility] Prostate Cancer Risk Assessment Tool: unfortunately only [...] Kade Chan MD [address], [place], [address], [facility] 12/28/2022 12:10:13 06/29/2023 text/html [...] for evaluation and treatment. Family history of lead embedded software engineer: None Current voiding symptoms: reports that he occasionally has sensation of incomplete emptying and has been struggling with nocturia up to 3x per night for the past year. However, was started by his PCP on tamsulosin a few days ago and states that he has already noticed a difference. Current erectile function: reports no significant issues [facility] Prostate Cancer Risk Assessment Tool: [...] base of the penis. Kade Chan MD [address] [place] [address],[address], [place], [address], [facility] 06/29/2023 21:30:15 09/27/2023 text/html HPI Notes: [...] for evaluation and treatment. Family history of lead embedded software engineer: None Current voiding symptoms: reports that he occasionally has sensation of incomplete emptying and has been struggling with nocturia up to 3x per night for the past year. However, was started by his PCP on tamsulosin a few days ago and states that he has already noticed a difference. Current erectile function: reports no significant issues [facility] Prostate Cancer Risk Assessment Tool: [...] some of the hisotry. Kade Chan MD [address], [place], [address], [facility] 09/27/2023 13:35:10
--- OUTSIDE RECORDS SUMMARY | 2023-11-27 08:53 | XMS_ITS | Clinical Summary ---
Author Organization [facility] Address [place], [place] [address] Care Team Providers Care Structural Draftsman Name Role Phone Jacob Mcleod MD Primary Care Provider [phone] Allergies No known active allergies Medications No [...] Mass Index - - Plan of Treatment Upcoming Encounters Date Type Department Care Team (Latest Contact Info) Description 12/11/2023 2:45 PM CDT Hospital Encounter [facility] [address] [place], [place] [id number] Kade Chan MD [address] [place] [id number] 12/11/2023 2:45 PM CDT - 12/11/2023 4:45 PM CDT Surgery [facility] [address] [place] [address] Kade Chan MD [address] [place] [address] ROBOTIC AQUABLATION OF PROSTATE Scheduled Procedures Name Priority Associated Diagnoses Date/Ti me ROBOTIC AQUABLATION OF PROSTATE Elective LOWER URINARY TRACT SYMPTOMS 12/11/2023 2:45 PM CDT Health Maintenance Due Date Last Done Comments Tdap 1976 Depression screening for age 12+ 1977 HIV for age 15-65 1980 BMI (ht and wt on same day) for age 18+ 1983 Hepatitis C screening for ag e 18-79 1983 Tetanus booster 1985 Lipids for age 45-75 2010 Zoster (shingles) series for age 50+ (1 of 2) 2015 COVID-19 vaccine series (2022- season) 2023 07/13/2021, 10/20/2020, 09/29/2020 Influenza for age 50-64 02/18/2024 Colonoscopy through [...] Recently Relevant to Health Maintenance Care Teams Structural Draftsman Relationship Specialty Start Date End Date Jacob Mcleod MD PCP - General Family Practice 09/28/15
--- NOTE | 2023-11-27 09:00 | CRLHL7_ITS ---
For Patients: As a result of the Century Cures Act, medical imaging exams and procedure reports are released immediately into your electronic medical record. You may view this report before your referring provider. If you have questions, please contact your health care provider. INDICATION: SLURRED SPEECH, APHASIA, POSSIBLE LT FACIAL DROOP. PT NOT SEEN, SOME DIZZINESS REMAINS. COMPARISON: none TECHNIQUE: A CT volumetric acquisition was performed of the brain without IV contrast. Please note that all CT scans at this facility use dose modulation, iterative reconstruction, and/or weight-based dosing when appropriate to reduce radiation dose to as low as reasonably achievable. FINDINGS: The CT images reveal a normal appearance of the cerebral ventricles and basal cisterns. There is no evidence of intracranial hemorrhage, tissue infarction or mass effect. The mastoid air cells and middle ear cavities are clear. Clear sinuses. Degenerative changes at the left temporomandibular joint. Vascular calcifications noted. Rightward curvature nasal septum. IMPRESSION: Normal CT brain. Please note that all CT scans at this facility use dose modulation, iterative reconstruction, and/or weight-based dosing when appropriate to reduce radiation dose to as low as reasonably achievable. Dictated by Donnell Aguilar MD @ 11/27/2023 10:21:47 AM (Electronically Signed)
== END 2023-11-27 08:51 | disposition home or self-care (01) ==
PROVIDERS: PCP Physician Assistant Medical; Visit Provider Physician Assistant Medical
DX: R47.81 Slurred speech (principal); R42 Dizziness and giddiness
CPT/HCPCS: 70450

== ENCOUNTER 2024-11-20 09:33 | Outpatient (CLI) | payer BC, SELFPAY | END 2024-11-20 09:34 | disposition home or self-care (01) | LOC: NFLDREF 11-22 21:55 | PROVIDERS: PCP Physician Assistant Medical; Referring Provider Physician Assistant Medical; Visit Provider Physician Assistant Medical | DX: Z00.00 Encounter for general adult medical examination without abnormal findings (principal); I10 Essential (primary) hypertension; R73.03 Prediabetes; N52.9 Male erectile dysfunction, unspecified | CPT/HCPCS: 80053; 80061; 84443 ==